=== PATIENT | female | born 1975 | race Two or more races ===

== ENCOUNTER 2022-10-26 09:45 | Inpatient (IN) | payer OTHER ==
[~2022-10-26] VITALS: Ht 170.2 cm; Wt 113.9 kg
== END 2022-10-30 13:55 | disposition home or self-care (01) | DRG 519 ==
LOC: O/R 10-29 05:45 → SURH 10-29 07:00
PROVIDERS: ADMIT Student in an Organized Health Care Education/Training Program; ATTEND Student in an Organized Health Care Education/Training Program
PROC: 01NB0ZZ Release Lumbar Nerve, Open Approach (ICD-10-PCS; 2022-10-29)
PROC: 0SB20ZZ Excision of Lumbar Vertebral Disc, Open Approach (ICD-10-PCS; principal; 2022-10-29 07:00)
DX: M48.061 Spinal stenosis, lumbar region without neurogenic claudication (principal); M51.06 Intervertebral disc disorders with myelopathy, lumbar region; M51.16 Intervertebral disc disorders with radiculopathy, lumbar region

== ENCOUNTER 2025-08-05 10:09 | Outpatient (CLI) | payer OTHER | END 2025-08-05 10:14 | disposition home or self-care (01) | LOC: SONOGRAMA 10:09 | PROVIDERS: ATTEND Pathology Anatomic Pathology & Clinical Pathology | DX: R22.1 Localized swelling, mass and lump, neck (principal) ==